=== PATIENT | male | born 1990 | race Caucasian/White ===

== ENCOUNTER 2017-08-30 01:38 | Emergency (ER) | payer SELFPAY ==
[~2017-08-30] VITALS: Ht 175.3 cm; Wt 108.9 kg
--- OUTSIDE RECORDS SUMMARY | 2017-08-30 01:47 | XMS REPORT ---
Author Author Carol Handley [facility] Address Unknown Care Team Providers Care Manager Interface Name Role Phone Geoffreyzac Carol Unavailable PROBLEMS Type Condition ICD9-CM Code [id number] Code Onset Dates Condition Status SNOMED Code Problem High risk sexual behavior Z72.51 Active 402375378 Problem Epigastric pain R10.13 Active 73031319 Problem Nausea & vomiting R11.2 Active 66478733 Problem Cyst of skin L72.9 Active 585084897 Problem Unintentional weight loss R63.4 Active 611388266 Problem Heartburn R12 Active 40678000 Problem Severe single current episode of major depressive disorder, 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
--- OUTSIDE RECORDS SUMMARY | 2017-08-30 01:47 | XMS REPORT ---
Author Author Ana Reynolds [facility] Address [address], [address] [place] [address] Care Team Providers Care Construction Assistant Name Role Phone Ana Reynolds Unavailable PROBLEMS Type Condition ICD9-CM Code [id number] Code Onset Dates Condition Status SNOMED Code Problem High risk sexual behavior Z72.51 Active 176159120 Problem Epigastric pain R10.13 Active 63158157 Problem Nausea & vomiting R11.2 Active 63185195 Problem Cyst of skin L72.9 Active 227723280 Problem Unintentional weight loss R63.4 Active 966895358 Problem Heartburn R12 Active 79973931 Problem Severe single current episode of major depressive disorder, 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
--- OUTSIDE RECORDS SUMMARY | 2017-08-30 01:47 | XMS REPORT ---
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
--- OUTSIDE RECORDS SUMMARY | 2017-08-30 01:47 | XMS REPORT ---
Author Author Carol Handley [facility] Address Unknown Care Team Providers Care Rotor Coil Taper Name Role Phone Geoffreyzac Carol Unavailable PROBLEMS Type Condition ICD9-CM Code WAA49-HW Code Onset Dates Condition Status SNOMED Code Problem High risk sexual behavior Z72.51 Active 627606131 Problem Epigastric pain R10.13 Active 08318015 Problem Nausea & vomiting R11.2 Active 64164922 Problem Cyst of skin L72.9 Active 612260149 Problem Unintentional weight loss R63.4 Active 465106407 Problem Heartburn R12 Active 98957639 Problem Severe single current episode of major depressive disorder, 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 Active 36661659 Problem Back spasm M62.830 Active 643348296 Problem Panic attacks F41.0 Active 963987196 Problem Hypercalcemia E83.52 Active 19943325 Problem Insomnia G47.00 Active 958205504 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
--- OUTSIDE RECORDS SUMMARY | 2017-08-30 01:47 | XMS REPORT ---
Author Author Thierno Meier [facility] Address [address], [address] [place] [address] Care Team Providers Care Warehouse Helper Name Role Phone Thierno Meier Unavailable PROBLEMS Type Condition ICD9-CM Code ALX64-MM Code Onset Dates Condition Status SNOMED Code Problem High risk sexual behavior Z72.51 Active 993098110 Problem Epigastric pain R10.13 Active 11707184 Problem Nausea & vomiting R11.2 Active 32246682 Problem Cyst of skin L72.9 Active 119470335 Problem Unintentional weight loss R63.4 Active 033022669 Problem Heartburn R12 Active 50342997 Problem Severe single current episode of major depressive disorder, 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
--- OUTSIDE RECORDS SUMMARY | 2017-08-30 01:47 | XMS REPORT ---
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 Active 86183272 Problem Cyst of skin L72.9 Active 271967426 Problem Unintentional weight loss R63.4 Active 395264797 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
--- OUTSIDE RECORDS SUMMARY | 2017-08-30 01:47 | XMS REPORT ---
Author Author Ana Reynolds [facility] Address [address], [address] [place] [address] Care Team Providers Care Chief Security Officer Name Role Phone Ana Reynolds Unavailable PROBLEMS Type Condition ICD9-CM Code IZM88-RD Code Onset Dates Condition Status SNOMED Code Problem High risk sexual behavior Z72.51 Active 710725893 Problem Epigastric pain R10.13 Active 32201653 Problem Nausea & vomiting R11.2 Active 03020500 Problem Cyst of skin L72.9 Active 486693632 Problem Unintentional weight loss R63.4 Active 549953928 Problem Heartburn R12 Active 83289652 Problem Severe single current episode of major depressive disorder, 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 Unknown Non Drug Allergy Oct, Unknown SOCIAL HISTORY Qualifiers Date Never Smoker Unknown PLAN OF CARE Activity Details Follow Up 4 Weeks, prn Reason: VITAL SIGNS Temperature 97.3 degrees Fahrenheit 2016-11-01 Heart Rate 79 /min 2016-11-01 Height 69.5 in 2016-11-01 Weight 235 lbs 2016-11-01 BMI 34.20 kg/m2 2016-11-01 Respiratory Rate 16 /min 2016-11-01 Oximetry 99 % 2016-11-01 Blood pressure systolic 151 mm Hg 2016-11-01 Blood pressure diastolic 73 mm Hg 2016-11-01 MEDICATIONS Medication Instructions Dosage Frequency Start Date End Date Duration Status Ranitidine HCl 150 MG Orally Twice a day 1 tablet 12h 14 May, 2016 30 day(s) Active Tylenol Active Naproxen 500 MG Orally Twice a day 1 tablet 12h 04 Oct, 2016 14 days Active RESULTS No Results PROCEDURES Procedure Date Ordered Related Diagnosis Body Site Office Visit, Est Pt., Level 3 November 01, 2016 IMMUNIZATIONS No Known Immunizations
--- OUTSIDE RECORDS SUMMARY | 2017-08-30 01:47 | XMS REPORT ---
Author Author Thierno Meier [facility] Address [address], [address] [place] [address] Care Team Providers Care Airfield Services Officer Name Role Phone Thierno Meier Unavailable PROBLEMS Type Condition ICD9-CM Code JUR44-DY Code Onset Dates Condition Status SNOMED Code Problem High risk sexual behavior Z72.51 Active 859551600 Problem Epigastric pain R10.13 Active 86758642 Problem Nausea & vomiting R11.2 Active 09239192 Problem Cyst of skin L72.9 Active 963987325 Problem Unintentional weight loss R63.4 Active 553199612 Problem Heartburn R12 Active 37510539 Problem Severe single current episode of major depressive disorder, 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
--- OUTSIDE RECORDS SUMMARY | 2017-08-30 01:47 | XMS REPORT ---
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
--- OUTSIDE RECORDS SUMMARY | 2017-08-30 01:47 | XMS REPORT ---
Author Author Ana Reynolds [facility] Address 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 Unknown Non Drug Allergy Aug, Unknown SOCIAL HISTORY Qualifiers Date Never Smoker Unknown PLAN OF CARE Activity Details Follow Up 2 - 3 Days if no better, prn Reason: VITAL SIGNS Temperature 99.0 degrees Fahrenheit 2016-08-31 Heart Rate 77 /min 2016-08-31 Height 69.5 in 2016-08-31 Weight 230 lbs 2016-08-31 BMI 33.47 kg/m2 2016-08-31 Respiratory Rate 14 /min 2016-08-31 Oximetry 96 % 2016-08-31 Blood pressure systolic 121 mm Hg 2016-08-31 Blood pressure diastolic 70 mm Hg 2016-08-31 MEDICATIONS Medication Instructions Dosage Frequency Start Date End Date Duration Status Ranitidine HCl 150 MG Orally Twice a day 1 tablet 12h 14 May, 2016 30 day(s) Active Tylenol Active HydrOXYzine Pamoate 25 MG Orally every 8 hrs 1 capsule as needed 8h Jun 30 day(s) Active Lidocaine Viscous 2 % Mouth/Throat TID 10 ml gargle and swallow 8h Aug, 05 days Active RESULTS No Results PROCEDURES Procedure Date Ordered Related Diagnosis Body Site Office Visit, Est Pt., Level 3 Aug 31, 2016 IMMUNIZATIONS No Known Immunizations
--- OUTSIDE RECORDS SUMMARY | 2017-08-30 01:47 | XMS REPORT ---
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 Active 33456392 Problem Heartburn R12 Active 50559085 Problem Cyst of skin L72.9 Active 699772213 Problem Elevated total protein R77.8 Active 54657659 Problem Hypercalcemia E83.52 Active 60973380 Problem Nausea & vomiting R11.2 Active 20120306 Problem High risk sexual behavior Z72.51 Active 435087769 Problem Insomnia G47.00 Active 654111030 Problem Epigastric pain R10.13 Active 62638366 ALLERGIES Unknown Allergies SOCIAL HISTORY No smoking Hx information available PLAN OF CARE VITAL SIGNS MEDICATIONS Unknown Medications RESULTS No Results PROCEDURES No Known procedures IMMUNIZATIONS No Known Immunizations
--- OUTSIDE RECORDS SUMMARY | 2017-08-30 01:47 | XMS REPORT ---
Author Author Thierno Meier [facility] Address [address], [address] [place] [address] Care Team Providers Care Environmental Law Professor Name Role Phone Thierno Meier Unavailable PROBLEMS Type Condition ICD9-CM Code OTX08-AP Code Onset Dates Condition Status SNOMED Code Problem High risk sexual behavior Z72.51 Active 658896984 Problem Epigastric pain R10.13 Active 87524796 Problem Nausea & vomiting R11.2 Active 93128495 Problem Cyst of skin L72.9 Active 277781836 Problem Unintentional weight loss R63.4 Active 714552173 Problem Heartburn R12 Active 41677110 Problem Severe single current episode of major depressive disorder, 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 Active 87451471 Problem Back spasm M62.830 Active 362356527 Problem Panic attacks F41.0 Active 763546699 Problem Hypercalcemia E83.52 Active 85954664 Problem Insomnia G47.00 Active 013254240 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
--- OUTSIDE RECORDS SUMMARY | 2017-08-30 01:47 | XMS REPORT ---
Author Author Ana Reynolds [facility] Address [address], [address] [place] [address] Care Team Providers Care Tie Layer Name Role Phone Ana Reynolds Unavailable PROBLEMS Type Condition ICD9-CM Code DPH36-DD Code Onset Dates Condition Status SNOMED Code Problem High risk sexual behavior Z72.51 Active 145482404 Problem Epigastric pain R10.13 Active 29570042 Problem Nausea & vomiting R11.2 Active 90777950 Problem Cyst of skin L72.9 Active 918027286 Problem Unintentional weight loss R63.4 Active 788411430 Problem Heartburn R12 Active 13801717 Problem Severe single current episode of major depressive disorder, 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
--- OUTSIDE RECORDS SUMMARY | 2017-08-30 01:47 | XMS REPORT ---
Author Author Thierno Meier [facility] Address [address], [address] [place] [address] Care Team Providers Care Software Security Consultant Name Role Phone Thierno Meier Unavailable PROBLEMS Type Condition ICD9-CM Code MSG58-TG Code Onset Dates Condition Status SNOMED Code Problem High risk sexual behavior Z72.51 Active 709702965 Problem Epigastric pain R10.13 Active 78152097 Problem Nausea & vomiting R11.2 Active 92447287 Problem Cyst of skin L72.9 Active 785781360 Problem Unintentional weight loss R63.4 Active 476662185 Problem Heartburn R12 Active 07827394 Problem Severe single current episode of major depressive disorder, 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
--- OUTSIDE RECORDS SUMMARY | 2017-08-30 01:47 | XMS REPORT ---
Author Author Thierno Meier [facility] Address [address], [address] [place] [address] Care Team Providers Care Special Effects Makeup Artist Name Role Phone UmbertogilbertThierno Unavailable PROBLEMS Type Condition ICD9-CM Code VAO78-FJ Code Onset Dates Condition Status SNOMED Code Problem High risk sexual behavior Z72.51 Active 649916860 Problem Epigastric pain R10.13 Active 17933772 Problem Nausea & vomiting R11.2 Active 24081104 Problem Cyst of skin L72.9 Active 890455687 Problem Unintentional weight loss R63.4 Active 732000800 Problem Heartburn R12 Active 20459364 Problem Severe single current episode of major depressive disorder, 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 Unknown Non Drug Allergy Jun, Unknown SOCIAL HISTORY No smoking Hx information available PLAN OF CARE Activity Details Follow Up 2 Weeks Reason:nodules, wt loss, depression/anxiety VITAL SIGNS Temperature 98.2 degrees Fahrenheit 2016-07-05 Heart Rate 69 /min 2016-07-05 Height 69.5 in 2016-07-05 Weight 214 lbs 2016-07-05 BMI 31.15 kg/m2 2016-07-05 Respiratory Rate 16 /min 2016-07-05 Oximetry 98 % 2016-07-05 Blood pressure systolic 128 mm Hg 2016-07-05 Blood pressure diastolic 75 mm Hg 2016-07-05 MEDICATIONS Medication Instructions Dosage Frequency Start Date End Date Duration Status Ranitidine HCl 150 MG Orally Twice a day 1 tablet 12h 14 May, 2016 30 day(s) Active HydrOXYzine Pamoate 25 MG Orally every 8 hrs 1 capsule as needed 8h 06 Jun 30 day(s) Active Zoloft 50 MG Orally Once a day 1 tablet 24h May, 30 day(s) Active RESULTS No Results PROCEDURES Procedure Date Ordered Related Diagnosis Body Site HCV RNA BY PCR, QT Jul 05, 2016 HEPATITIS B SURFACE AG, EIA Jul 05, 2016 Office Visit Est Pt Level 4 Jul 05, 2016 IMMUNIZATIONS No Known Immunizations
--- OUTSIDE RECORDS SUMMARY | 2017-08-30 01:47 | XMS REPORT ---
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
--- OUTSIDE RECORDS SUMMARY | 2017-08-30 01:48 | XMS REPORT ---
Author Author Thierno Meier 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 Unknown Non Drug Allergy May, Unknown SOCIAL HISTORY No smoking Hx information available PLAN OF CARE VITAL SIGNS MEDICATIONS Unknown Medications RESULTS No Results PROCEDURES No Known procedures IMMUNIZATIONS No Known Immunizations
--- OUTSIDE RECORDS SUMMARY | 2017-08-30 01:48 | XMS REPORT ---
Author Author Thierno Meier [facility] eClinicalWorks Address Unknown Phone Unavailable Care Team Providers Care Corporate Events Director Name Role Phone Thierno Meier CP Unavailable Allergies, Adverse Reactions, Alerts Substance Reaction Event Type N.K.D.A. Info Not Available Non Drug Allergy Problems Problem Type Condition Code Onset Dates Condition Status Assessment Epigastric pain R10.13 Active Problem Cyst of skin L72.9 Active Assessment [...] depressive disorder, 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 Active Assessment Elevated BP without diagnosis of hypertension R03.0 Active Assessment Obesity E66.9 Active Assessment Heartburn R12 Active Assessment Insomnia G47.00 Active Assessment Cyst of skin L72.9 Active Assessment High risk sexual behavior Z72.51 Active Assessment Unintentional weight loss R63.4 Active Assessment Nausea & vomiting R11.2 Active Medications Medication Code System Code Instructions Start Date End Date Status Dosage Zoloft [facility] [address]-95 50 MG Orally Once a day Jun 13, 2016 1 tablet Ranitidine HCl [facility] [address]-17 150 MG Orally Twice a day Jun 13, 2016 1 tablet Trazodone HCl [facility] [address]-33 50 MG Orally Once a day Jun 13, 2016 1 tablet at bedtime as needed Procedures Procedure Coding System Code Date COMPREHEN METABOLIC PANEL CPT-4 52199 Jun 13, 2016 GLYCATED HEMOGLOBIN TEST/A1C CPT-4 37372 Jun 13, 2016 COMPLETE CBC W/AUTO DIFF WBC CPT-4 75472 Jun 13, 2016 Office Visit, New Pt., Level 4 CPT-4 07172 Jun 13, 2016 LIPID PANEL CPT-4 20601 Jun 13, 2016 ASSAY THYROID STIM HORMONE CPT-4 95813 Jun 13, 2016 TEST FOR BLOOD, FECES CPT-4 09818 Jun 13, 2016 ASSAY OF LIPASE CPT-4 78063 Jun 13, 2016 Vital Signs Date/Time: Jun 13, 2016 Blood Pressure Systolic 145 mm Hg Cardiac Monitoring Heart Rate 70 /min Temperature 98.8 F BMI 31.87 Index Weight 219 lbs Height 69.5 in Blood Pressure Diastolic 80 mm Hg Oximetry 98 % Respiratory Rate 16 /min Results Name Result Date Reference Range Unit Abnormality Flag CBC (INCLUDES DIFF/PLT) ----ABSOLUTE NEUTROPHILS 6035 [id number] 2667-8575 cells/uL N ----MPV 10.2 73982544 7.5-11.5 fL N ----EOSINOPHILS 0.9 03994333 % N ----HEMOGLOBIN 15.9 06428860 13.2-17.1 g/dL N ----MONOCYTES 4.9 83089693 % N ----HEMATOCRIT 48.0 45441401 38.5-50.0 % N ----LYMPHOCYTES 20.2 90654688 % N ----MCV 90.5 18700441 80.0-100.0 fL N ----NEUTROPHILS 73.6 03541619 % N ----MCH 29.9 90149922 27.0-33.0 pg N ----ABSOLUTE BASOPHILS 33 22107730 0-200 cells/uL N ----MCHC 33.1 89504244 32.0-36.0 g/dL N ----BASOPHILS 0.4 76022131 % N ----ABSOLUTE EOSINOPHILS 74 14896328 15-500 cells/uL N ----RDW 13.1 39118808 11.0-15.0 % N ----WHITE BLOOD CELL COUNT 8.2 29552826 3.8-10.8 Thousand/uL N ----PLATELET COUNT 230 62228654 140-400 Thousand/uL N ----ABSOLUTE MONOCYTES 402 04072491 200-950 cells/uL N ----RED BLOOD CELL COUNT 5.30 16782658 4.20-5.80 Million/uL N ----ABSOLUTE LYMPHOCYTES 1656 92259115 850-3900 cells/uL N HEMOGLOBIN A1c ----HEMOGLOBIN A1c 5.0 49015440 <5.7 % of total Hgb N LIPID PANEL ----NON HDL CHOLESTEROL 101 28984835 mg/dL (calc) N ----CHOL/HDLC RATIO 3.5 28271936 < OR=5.0 (calc) N ----CHOLESTEROL, TOTAL 141 93138853 125-200 mg/dL N ----HDL CHOLESTEROL 40 17165899 > OR=40 mg/dL N ----TRIGLYCERIDES 67 85130110 <150 mg/dL N ----LDL-CHOLESTEROL 88 58258550 <130 mg/dL (calc) N COMPREHENSIVE METABOLIC PANEL ----SODIUM 139 98014624 135-146 mmol/L N ----BUN/CREATININE RATIO NOT APPLICABLE 20160613 6-22 (calc) ----CHLORIDE 98 20146249 98-110 mmol/L N ----POTASSIUM 4.5 81054111 3.5-5.3 mmol/L N ----CALCIUM 10.5 28125109 8.6-10.3 mg/dL H ----PROTEIN, TOTAL 8.3 07699179 6.1-8.1 g/dL H ----CARBON DIOXIDE 29 17571314 20-31 mmol/L N ----ALBUMIN/GLOBULIN RATIO 1.4 02777158 1.0-2.5 (calc) N ----eGFR NON-AFR. BULGARIAN 90 82135939 > OR=60 mL/min/1.73m2 N ----BILIRUBIN, TOTAL 1.6 33128978 0.2-1.2 mg/dL H ----eGFR 104 27930997 > OR=60 mL/min/1.73m2 N ----UREA NITROGEN (BUN) 11 71696980 7-25 mg/dL N ----ALBUMIN 4.9 48888416 3.6-5.1 g/dL N ----GLOBULIN 3.4 54907356 1.9-3.7 g/dL (calc) N ----CREATININE 1.13 39480860 0.60-1.35 mg/dL N ----ALT 24 00368968 9-46 U/L N ----GLUCOSE 82 26915078 65-99 mg/dL N ----ALKALINE PHOSPHATASE 76 62498428 40-115 U/L N ----AST 22 52328428 10-40 U/L N LIPASE ----LIPASE 13 20160613 7-60 U/L N TSH W/REFLEX TO FT4 ----TSH W/REFLEX TO FT4 1.40 20160613 0.40-4.50 mIU/L N Summary Purpose eClinicalWorks Submission
--- OUTSIDE RECORDS SUMMARY | 2017-08-30 01:48 | XMS REPORT | Continuity of Care Document ---
Author Author [facility] Organization [facility] Address Unknown Phone Unavailable Allergies Active Description Code Type Severity Reaction Onset Reported/Identified Relationship to Patient Clinical Status Yes NKA Drug N/A N/A Medications Medication Packaging Start Date Stop Date Route Dosage Sig ondansetron 10/16/2015 11/15/2015 PO 4 mg / 1 tab Problems Date Dx Coded Attending Type Code Diagnosis Diagnosed By 10/16/2015 Damien Wahl Final F15.10 Other stimulant abuse, uncomplicated 10/16/2015 Damien Wahl Final R00.2 Palpitations 06/27/2016 Final R77.8 Other specified abnormalities of plasma proteins 06/29/2016 Final E80.6 Other disorders of bilirubin metabolism 06/29/2016 Final K82.4 Cholesterolosis of gallbladder 07/06/2016 KHALIF BECERRA Final R59.0 Localized enlarged lymph nodes 12/06/2016 Ana Reynolds Final M25.461 Effusion, right knee 12/06/2016 Ana Reynolds Final M71.21 Synovial cyst of popliteal space [Martell], right knee 12/06/2016 Ana Reynolds Final S83.211A Bucket-handle tear of medial meniscus, current injury, right 12/06/2016 Ana Reynolds Final S83.511A Sprain of anterior cruciate ligament of right knee, initial 12/06/2016 Ana Reynolds Final S89.91XA Unspecified injury of right lower leg, initial encounter Procedures Code Description [place] [address] Emergency department visit for the evalu SASKIA DENA 10/15/2015 Results Test Result Range BASIC METABOLIC PANEL - 10/16/15 00:41 Anion Gap 11 mmol/L NRG BUN 13 mg/dL 6-20 Calcium 9.6 mg/dL 8.5-10.5 Calculated GFR >60.0 mL/min/1.73sq >60 Carbon Dioxide, Total 28 mmol/L 21-31 Chloride 100 mmol/L 101-111 Creatinine 1.0 mg/dL 0.5-1.2 Glucose Level 102 mg/dL 70-100 Potassium 4.5 mmol/L 3.6-5.0 Sodium 139 mmol/L 135-145 SERUM PROTEIN ELECTR. - 06/27/16 10:35 Albumin, SPE 4.11 g/dL 3.40-4.80 Alpha 1 Globulins, SPE 0.27 g/dL 0.20-0.60 Alpha 2 Globulins, SPE 0.72 g/dL 0.30-1.00 Beta Globulins, SPE 1.26 g/dL 0.60-1.20 Gamma Globulins, SPE 1.53 g/dL 0.60-1.50 Path. Interpretation SPE: NO MONOCLONAL PROTEIN IDENTIFIED. NRG Total Protein SPE 7.9 g/dL 6.0-8.0 PARATHYROID HORMONE,CALCIUM - 06/27/16 10:35 CPTHT 9.6 mg/dL 8.5-10.5 PTHINT NORMAL RESULTS FOR CALCIUM AND/OR PTH ARE NOT SUGGESTIVE OF PARATHYROID NRG PTHT 32.98 pg/mL 15-75 Encounters ACCT No. Visit Date/Time Discharge Status Pt. Type Provider Facility Loc./Unit Complaint [id number] 12/06/2016 09:21:00 12/06/2016 23:59:00 DIS Outpatient Ana Reynolds [facility] CHARLES MR LOWER EXT JOINT WO [id number] 11/03/2016 09:06:00 11/09/2016 15:07:00 DIS Outpatient Ana Reynolds [facility] [place]wan MR LOWER EXT JOINT WO [id number] 07/06/2016 06:50:00 07/06/2016 23:59:00 DIS Outpatient KHALIF BECERRA [facility] RAD CT ABD W IV [id number] 06/29/2016 08:16:00 06/29/2016 23:59:00 DIS Outpatient [facility] RAD LIVER SONO [id number] 06/27/2016 12:03:00 06/27/2016 23:59:00 DIS Outpatient [facility] ЕКАТЕРИНА OTHER SPECIFIED ABNORMALITIES OF PLASMA PROTEINS [id number] 10/15/2015 23:08:00 10/16/2015 03:07:00 DIS Emergency [facility]
[2017-08-30] MEDS ORDERED: RX-NAPROXEN (NAPROSYN) 250 MG TAB PPK#4 PO STA (02:02)
[2017-08-30] MEDS ORDERED: RX-CLINDAMYCIN 150 MG (CLEOCIN) CAP PPK#4 PO STA (02:02)
[2017-08-30] MEDS ORDERED: CLIN300C11 PO (02:05)
[2017-08-30] MEDS ORDERED: LIDO15SO2 MM (02:05)
[2017-08-30] MEDS ORDERED: NAPR500T4 PO (02:05)
--- NOTE | 2017-08-30 02:05 | ED EENT ---
History of Present Illness General Chief Complaint: Dental Problems/Pain Stated Complaint: DENTAL PAIN Nursing Triage Note: DENTAL PAIN Source: patient History of Present Illness Date Seen by Provider: Aug 30, 2017 Time Seen by Provider: 01:55 Initial Comments C/O DENTAL PAIN X 2 DAYS HAD PAIN TO LEFT UPPER PREMOLAR DUE TO DENTAL CARIES--STARTED 4 WEEKS AGO. WAS SEEN AT [facility], AND THEN BY DENTIST AT [facility] IN [place] --INITIALLY WAS PRESCRIBED CLINDAMYCIN 150 MG TID, THEN WAS PRESCRIBED CLINDAMYCIN 300 MG BID AND SYMPTOMS WENT AWAY COMPLETELY WITH THAT TOOTH. FINISHED ANTIBIOTICS 2 WEEKS AGO. IS SUPPOSED TO HAVE THAT TOOTH PULLED, BUT HAS NOT MADE AN APPOINTMENT TO HAVE THAT DONE 2 DAYS AGO, BEGAN HAVING PAIN TO RIGHT LOWER MOLAR. HAS NOT TAKEN ANYTHING FOR PAIN AND HAS NOT ATTEMPTED TO SEE A DENTIST FOR THIS PROBLEM NO FEVER NO SWELLING TO JAW/FACE [place] [place] and Home Medications Allergies Coded Allergies: No Known Drug Allergies (Unverified , 08/30/17) Home Medications Clindamycin HCl 300 Mg Capsule, 300 MG PO QID, #40 Prescribed by: JAY HANNA on 08/30/17 0205 Lidocaine HCl 15 Ml Solution, 5 ML MM Q 1-2 HOURS, #100 Prescribed by: JAY HANNA on 08/30/17 0205 Naproxen 500 Mg Tablet, 500 MG PO BID, #20 Prescribed by: JAY HANNA on 08/30/17 0205 Review of Systems Constitutional: no symptoms reported Mouth: see HPI Throat: no symptoms reported Respiratory: no symptoms reported Cardiovascular: no symptoms reported Skin: no symptoms reported Neurological: No Symptoms Reported Hematologic/Lymphatic: No Symptoms Reported Past Apduuyg-Qllpte-Dwvzyn Hx Patient Social History Alcohol Use: Occasionally Uses Recreational Drug Use: No Smoking Status: Never a Smoker 2nd Hand Smoke Exposure: No Recent Foreign Travel: No Contact w/Someone Who Travel: No Recent Infectious Disease Expo: No Recent Hopitalizations: No Immunizations Up To Date Tetanus Booster (TDap): Unknown PED Vaccines UTD: Yes Seasonal Allergies Seasonal Allergies: No Surgeries History of Surgeries: No Respiratory History of Respiratory Disorde: No Cardiovascular History of Cardiac Disorders: No Neurological History of Neurological Disord: No Genitourinary History of Genitourinary Disor: No Gastrointestinal History of Gastrointestinal Di: No Musculoskeletal History of Musculoskeletal Dis: No Endocrine History of Endocrine Disorders: No HEENT History of HEENT Disorders: Yes (DENTAL CARIES) Cancer History of Cancer: No Psychosocial History of Psychiatric Problem: No Integumentary History of Skin or Integumenta: No Blood Transfusions History of Blood Disorders: No Physical Exam Vital Signs Vital Sign - Last 12Hours 08/30/17 01:55 Temp 98.3 Pulse 75 Resp 16 B/P (MAP) 172/97 (122) Pulse Ox 97 O2 Delivery Room Air General Appearance: WD/WN, no apparent distress Eyes: bilateral eye normal inspection, bilateral eye PERRL, bilateral eye EOMI Mouth/Throat: dental tenderness, No excessive drooling, No mandibular swelling , No maxillary swelling, other (MULTIPLE DENTAL CARIES. LEFT UPPER FIRST MOLAR WITH SIGNIFICANT CARIES BUT NO TENDERNESS AND NO ADJACENT GUM SWELLING/ INFLAMMATION. 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, no motor/sensory deficits, alert, normal mood/affect, oriented x 3 Skin: normal color, warm/dry Progress/Results/Core Measures Results/Orders My Orders Orders - JAY HANNA DO Rx-Clindamycin Capsule (Rx-Cleocin Capsu (08/30/17 02:02) Rx-Naproxen (Rx-Naprosyn) (08/30/17 02:02) Lidocaine 2% Viscous 15 Ml (Xylocaine Vi (08/30/17 02:15) Medications Given in ED Current Medications Medications Dose Ordered Sig/Jenn Route Start Time Stop Time Status Last Admin Dose Admin Lidocaine HCl 5 ml ONCE ONCE MM 08/30/17 02:15 08/30/17 02:16 DC 08/30/17 02:17 5 ML Vital Signs/I&O Vital Sign - Last 12Hours 08/30/17 08/30/17 01:55 02:19 Temp 98.3 98.3 Pulse 75 75 Resp 16 16 B/P (MAP) 172/97 (122) Pulse Ox 97 97 O2 Delivery Room Air Blood Pressure Mean: 122 Departure Impression Impression: Primary Impression: Dental caries Disposition: 01 HOME, SELF-CARE Condition: Stable Departure-Patient Inst. Referrals: [facility] (PCP/Family) Primary Care Physician Patient Instructions: Tooth Decay, Adult (DC), Dental Pain (DC) Add. Discharge Instructions: WARM SALT WATER SWISHES FOLLOW UP WITH DENTIST THIS WEEK FOR FURTHER CARE--CALL TODAY TO MAKE APPOINTMENT All discharge instructions reviewed with patient and/or family. Voiced understanding. Scripts Naproxen (Naproxen) 500 Mg Tablet 500 MG PO BID, #20 TAB Prov: JAY HANNA DO 08/30/17 Lidocaine HCl (Lidocaine HCl Viscous) 15 Ml Solution 5 ML MM Q 1-2 HOURS for Pain, #100 ML Prov: JAY HANNA DO 08/30/17 Clindamycin HCl (Clindamycin HCl) 300 Mg Capsule 300 MG PO QID for FOR INFECTION, #40 CAP Prov: JAY HANNA DO 08/30/17 Images Mouth/Nose 1 - Caries, Swelling, Tenderness 2 - Caries JAY HANNA DO Aug 30, 2017 02:05
[2017-08-30] MEDS ORDERED: LIDOCAINE 2% VISCOUS 15 ML UDC MM ONE (02:15)
[2017-08-30 02:19] VITALS: BP 157/88
== END 2017-08-30 02:17 | disposition home or self-care (01) ==
LOC: EDUNIT# 01:38 → ER 01:44
DX: K02.9 Dental caries, unspecified (principal)
CPT/HCPCS: 99283